=== PATIENT | female | born 1980 | race Hispanic/Latino ===

== ENCOUNTER 2017-09-07 15:04 | Emergency (ER) | payer MEDICAID ==
[2017-09-07 15:25] VITALS: RESP 16
--- NOTE | 2017-09-07 16:18 | RAD ---
PROCEDURE: Left Hand Radiographs. HISTORY: pain/tenderness to 4th/5th digits COMPARISON: None. FINDINGS: BONES: No evidence of acute displaced fracture nor dislocation. The osseous structures intact. JOINTS: Joint spaces preserved. No significant osteoarthritic changes. SOFT TISSUES: Note made of tiny densities within the ulnar soft tissues adjacent to the PIP and DIP joints 3rd finger, MCP joint 2nd digit and adjacent to the distal aspect proximal phalanx thumb nonspecific though these changes could represent old posttraumatic mineralization. . Clinical correlation recommended. OTHER FINDINGS: None. IMPRESSION: No evidence of acute displaced fracture nor dislocation.
[2017-09-07 16:47] VITALS: BP 116/74; PULSE 84; TEMP 98.7; O2SAT 99
--- NOTE | 2017-09-07 19:18 | C.PDOC ---
History Of Present Illness 37 year old female presents to the emergency department with complaints of left griffith dpain since this morning. She denies any injury, and reports that she is [id number]. Chief Complaint (Nursing): Finger,Hand,&Wrist History Per: Patient History/Exam Limitations: no limitations Onset/Duration Of Symptoms: Hrs Current Symptoms Are (Timing): Still Present Quality: "Pain" Past Medical History Reviewed: Historical Data, Nursing Documentation, Vital Signs Vital Signs: Last Vital Signs Temp 98.7 F 09/07/17 16:46 Pulse 84 09/07/17 16:46 Resp 16 09/07/17 16:46 BP 116/74 09/07/17 16:46 Pulse Ox 99 09/07/17 19:20 - Medical History PMH: No Chronic Diseases Surgical History: No Surg Hx Family History: States: No Known Family Hx - Social History Hx Alcohol Use: No Hx Substance Use: No - Immunization History Hx Tetanus Toxoid Vaccination: No Hx Influenza Vaccination: No Hx Pneumococcal Vaccination: No Review Of Systems Except As Marked, All Systems Reviewed And Found Negative. Musculoskeletal: Positive for: Hand Pain (left) Physical Exam - Physical Exam Appears: Non-toxic, No Acute Distress Skin: Warm, Dry Head: Atraumatic, Normacephalic Eye(s): bilateral: Normal Inspection Nose: Normal Neck: Normal, Supple Chest: Symmetrical Cardiovascular: Rhythm Regular Respiratory: Normal Breath Sounds Extremity: Normal ROM, Tenderness (mild tenderness to the left 5th digit. ), Capillary Refill (< 2 ) Neurological/Psych: Oriented x3, Normal Speech, Normal Cognition, Normal Motor, Normal Sensation, Normal Reflexes ED Course And Treatment O2 Sat by Pulse Oximetry: 99 (RA) Pulse Ox Interpretation: Normal - Other Rad XR Left Hand 3 Views X-Ray: Viewed By Me, Read By Radiologist Interpretation: IMPRESSION: No evidence of acute displaced fracture nor dislocation. Progress Note: Plan: XR Left Hand 3 Views Disposition - Disposition Referrals: [facility] [Outside] [facility] [Outside] Disposition: HOME/ ROUTINE Disposition Time: 16:30 Condition: GOOD Additional Instructions: JUDD RODRIGUEZ, thank you for letting us take care of you today. Your provider was Will Newsome DO and you were treated for SWOLLEN HAND. The emergency medical care you received today was directed at your acute symptoms. If you were prescribed any medication, please fill it and take as directed. It may take several days for your symptoms to resolve. Return to the Emergency Department if your symptoms worsen, do not improve, or if you have any other problems. Please contact your doctor or call one of the physicians/clinics you have been referred to that are listed on the Patient Visit Information form that is included in your discharge packet. Bring any paperwork you were given at discharge with you along with any medications you are taking to your follow up visit. Our treatment cannot replace ongoing medical care by a primary care provider outside of the emergency department. Thank you for allowing the [facility] team to be part of your care today. Follow up with the clinic or your primary doctor this week for re-evaluation and further management. Prescriptions: Ibuprofen [Motrin] 600 mg PO Q6 PRN #20 tab PRN Reason: Pain, Moderate (4-7) Instructions: Hand Pain (DC) Forms: [employer] (Faroese) - Clinical Impression Clinical Impression: Hand pain - Scribe Statement The provider has reviewed the documentation as recorded by the Scribe (Ck Majano) Provider Attestation: All medical record entries made by the Scribe were at my direction and personally dictated by me. I have reviewed the chart and agree that the record accurately reflects my personal performance of the history, physical exam, medical decision making, and the department course for this patient. I have also personally directed, reviewed, and agree with the discharge instructions and disposition.
== END 2017-09-07 16:50 | disposition home or self-care (01) ==
LOC: C.ER 15:04
DX: M79.642 Pain in left hand (principal)

== ENCOUNTER 2017-09-20 08:32 | Emergency (ER) | payer MEDICAID ==
[2017-09-20 08:37] VITALS: BMI 37.1
[2017-09-20 08:39] VITALS: O2SAT 99
[2017-09-20] MEDS ORDERED: Lidocaine 1% Inj (20ml) INFIL ONE (09:19)
[2017-09-20] MEDS ORDERED: Lidocaine Hydrochloride 5 ML INJ ONE (09:31)
--- NOTE | 2017-09-20 10:23 | C.PDOC ---
History Of Present Illness 37 year old female presents to ED c/o painful mass to right armpit for the last 3 days. Notes taking over the counter pain medications and applying warm compresses without relief. Denies fever, chills, or any other associated symptoms at this time. Time Seen by Provider: 09/20/17 08:42 Chief Complaint (Nursing): Abnormal Skin Integrity History Per: Patient History/Exam Limitations: no limitations Onset/Duration Of Symptoms: Days Current Symptoms Are (Timing): Still Present Location Of Injury: Right: Arm Quality Of Symptoms: Painful Recent travel outside of the [place]: No Additional History Per: Patient Past Medical History Reviewed: Historical Data, Nursing Documentation, Vital Signs Vital Signs: Last Vital Signs Temp 98.6 F 09/20/17 10:55 Pulse 78 09/20/17 10:55 Resp 20 09/20/17 10:55 BP 131/82 09/20/17 10:55 Pulse Ox 99 09/22/17 06:06 Family History: States: Unknown Family Hx - Social History Hx Alcohol Use: No Hx Substance Use: No - Immunization History Hx Tetanus Toxoid Vaccination: No Hx Influenza Vaccination: No Hx Pneumococcal Vaccination: No Review Of Systems Constitutional: Negative for: Fever, Chills Musculoskeletal: Positive for: Arm Pain (right axilla) Skin: Positive for: Other (painful mass to right armpit) Neurological: Negative for: Weakness, Numbness Physical Exam - Physical Exam Appears: Non-toxic, No Acute Distress Skin: Warm, Dry, Other (2cm of round erythematous fluctuant mass that is tender to palpation) Head: Atraumatic, Normacephalic Eye(s): bilateral: Normal Inspection Extremity: Bilateral: Atraumatic, Normal ROM Neurological/Psych: Oriented x3, Normal Speech ED Course And Treatment O2 Sat by Pulse Oximetry: 99 (RA) Pulse Ox Interpretation: Normal - Incision & Drainage Of Abscess Anesthesia: Lidocaine 1% Prep Used: Sterile Water, Betadine Procedure: Incised W/Scalpel Blade#: (11), Drained Pus, Probed To Break Up Loculations, Packed W/Gauze, Cultures Obtained And Sent To Lab Medical Decision Making Medical Decision Making: Plan: Keflex Bactrim Motrin i and d done Disposition Counseled Patient/Family Regarding: Diagnosis, Need For Followup, Rx Given - Disposition Referrals: Anderson Ball DO [Staff Provider] - Disposition: HOME/ ROUTINE Disposition Time: 10:58 Condition: IMPROVED Additional Instructions: Keep wound covered. Take ibupforen for pain. Take antibiotics as prescribed. Return to ER in 2 days for a wound check. Prescriptions: Cephalexin [cephalexin] 500 mg PO Q6 #28 cap Ibuprofen [Motrin] 600 mg PO TID #30 tab Sulfamethoxazole/Trimethoprim [Bactrim DS 800 mg-160 mg] 1 tab PO BID #14 tab Instructions: Abscess Drainage, Percutaneous (DC) Forms: [employer] (Urdu), General Discharge Instructions - Clinical Impression Clinical Impression: Abscess of right axilla - PA / [employer] / Resident Statement / has reviewed & agrees with the documentation as recorded. - Scribe Statement The provider has reviewed the documentation as recorded by the Scribe KP All medical record entries made by the Scribe were at my direction and personally dictated by me. I have reviewed the chart and agree that the record accurately reflects my personal performance of the history, physical exam, medical decision making, and the department course for this patient. I have also personally directed, reviewed, and agree with the discharge instructions and disposition.
[2017-09-20] MEDS ORDERED: Tmp-Smz 800 mg-160 mg DS Tab PO STA (10:40)
[2017-09-20] MEDS ORDERED: Tmp-Smz 800 mg-160 mg DS Tab ONE (10:54)
[2017-09-20 10:57] VITALS: BP 131/82; PULSE 78; RESP 20; TEMP 98.6
== END 2017-09-20 11:13 | disposition home or self-care (01) ==
LOC: C.ER 08:32
DX: L02.411 Cutaneous abscess of right axilla (principal)

== ENCOUNTER 2017-09-23 13:13 | Emergency (ER) | payer MEDICAID ==
[2017-09-23 13:13] VITALS: BMI 37.1
[2017-09-23 13:28] VITALS: BP 128/76; PULSE 81; RESP 16; TEMP 98.8; O2SAT 98
--- NOTE | 2017-09-23 13:37 | C.PDOC ---
History Of Present Illness FOR WOUND CHECK S/P I&D 09/20. PS CHANGES DRESSING DAILY, NO NEW SX SINCE PRIOR EVAL. EXAM SKIN R AXILLA WOUND S/P I&D, PACKING IN PLACE. NO DC, ERYTHEMA PROC PACKING REMOVED WO DIFF. NO PURULENT DC, FLUCTUANCE. PT TOLERATED WELL DRESSING APPLIED Time Seen by Provider: 09/23/17 13:30 Chief Complaint (Nursing): Wound Check History Per: Patient History/Exam Limitations: no limitations Past Medical History Reviewed: Historical Data, Nursing Documentation, Vital Signs Vital Signs: Last Vital Signs Temp 98.8 F 09/23/17 13:26 Pulse 81 09/23/17 13:26 Resp 16 09/23/17 13:26 BP 128/76 09/23/17 13:26 Pulse Ox 98 09/23/17 13:37 - Medical History PMH: No Chronic Diseases Surgical History: No Surg Hx Family History: States: No Known Family Hx - Social History Hx Alcohol Use: No Hx Substance Use: No - Immunization History Hx Tetanus Toxoid Vaccination: No Hx Influenza Vaccination: No Hx Pneumococcal Vaccination: No Review Of Systems Except As Marked, All Systems Reviewed And Found Negative. Constitutional: Negative for: Fever, Chills Physical Exam - Physical Exam Appears: Non-toxic, No Acute Distress Skin: Normal Color, Warm, Dry, Other (right axilla wound s/p I&D packing in place, no discharge, erythema) Head: Atraumatic, Normacephalic Eye(s): bilateral: Normal Inspection Neurological/Psych: Oriented x3, Normal Speech ED Course And Treatment O2 Sat by Pulse Oximetry: 98 (RA) Pulse Ox Interpretation: Normal Medical Decision Making Medical Decision Making: PROC PACKING REMOVED WO DIFF. NO PURULENT DC, FLUCTUANCE. PT TOLERATED WELL DRESSING APPLIED Disposition Counseled Patient/Family Regarding: Diagnosis, Need For Followup - Disposition Referrals: YOUR,PMD [Other] Disposition: HOME/ ROUTINE Disposition Time: 13:35 Condition: IMPROVED Additional Instructions: WOUND DRESSING CHANGES TWICE DAILY. AVOID EXCESSIVE WETNESS. KEEP LOOSELY COVERED. RETURN IF WORSENING SYMPTOMS. Instructions: Wound Care (DC) Forms: [facility] (Tunisian), Work Excuse - Clinical Impression Clinical Impression: Change of dressing, Wound check, abscess - Scribe Statement The provider has reviewed the documentation as recorded by the Arline vOerton Provider Attestation: All medical record entries made by the Scribe were at my direction and personally dictated by me. I have reviewed the chart and agree that the record accurately reflects my personal performance of the history, physical exam, medical decision making, and the department course for this patient. I have also personally directed, reviewed, and agree with the discharge instructions and disposition.
== END 2017-09-23 13:47 | disposition home or self-care (01) ==
LOC: C.ER 13:13
DX: Z48.00 Encounter for change or removal of nonsurgical wound dressing (principal); L02.91 Cutaneous abscess, unspecified